=== PATIENT | female | born 1980 ===

== ENCOUNTER 2023-01-16 06:20 | Day surgery (SDC) | payer OTHER ==
[~2023-01-16] VITALS: Ht 170.2 cm; Wt 68.0 kg
[~2023-01-16 06:20] MED LIST: ALPRAZOLAM0.5 M1 PO; BUPRO PO; GABAPENT PO; GLUMETZA500 MG PO; PEPCID AC20 MG PO; TIROSINT25 MCG PO; [UNRECOGNIZED DRUG - OTHER] PO
== END 2023-01-16 14:25 | disposition home or self-care (01) ==
LOC: CIR.AMB 06:20
PROVIDERS: ATTEND Colon & Rectal Surgery
DX: K64.2 Third degree hemorrhoids (principal); K64.4 Residual hemorrhoidal skin tags; K64.8 Other hemorrhoids; K92.2 Gastrointestinal hemorrhage, unspecified; I10 Essential (primary) hypertension; Z20.822 Contact with and (suspected) exposure to COVID-19; Z91.040 Latex allergy status; E03.9 Hypothyroidism, unspecified